=== PATIENT | female | born 1985 | race Caucasian/White ===

== ENCOUNTER 2021-02-11 20:36 | Emergency (ER) | payer MEDICAID ==
[~2021-02-11] VITALS: Ht 157.5 cm; Wt 113.6 kg
[~2021-02-11 20:36] MED LIST: NEXIUM 40MG40 MG PO; PEPCID 20MG TAB20 MG PO; ZYRTEC 10MG10 MG PO
[2021-02-11 22:52] LABS: BASO # 0.1 K/mm3 (0.0-0.2); BASO % 0.4 % (0.0-2.0); EOS # 0.3 K/mm3 (0.0-0.7); EOS % 2.2 % (0-4.0); GRAN # 7.6 K/mm3 (1.4-6.5); GRAN % 59.5 % (42.2-75.2); HEMOGLOBIN 10.4 g/dl (12.5-16.0); LYMPH # 3.8 K/mm3 (1.2-3.4); LYMPH % 29.6 % (20.0-51.0); MEAN CELL VOLUME 79 fl (80.0-100.0); MEAN CORPUSCULAR HEMOGLOBIN 24 pg (27.0-31.0); MEAN CORPUSCULAR HGB CONC 31 g/dl (33.0-37.0); MEAN PLATELET VOLUME 9.3 fl (7.4-10.4); MONO % 7.7 % (1.7-9.3); PLATELET COUNT 279 K/mm3 (130-400); RED BLOOD COUNT 4.27 M/mm3 (4.10-5.30); REDCELL DISTRIBUTION WIDTH-CV 14.7 % (11.5-14.5)
[2021-02-11 22:54] LABS: HEMATOCRIT 33.7 % (37.0-47.0)
[2021-02-11 23:07] LABS: COLLECTION METHOD CLEAN CATCH
[2021-02-11 23:07] LABS: ALBUMIN 3.6 gm/dL (3.5-5.0); BILIRUBIN,TOTAL 0.1 mg/dL (0.2-1.2); CALCIUM 9.2 mg/dL (8.4-10.2); CREATININE, serum 0.71 mg/dL (0.57-1.11); POTASSIUM 3.7 mmol/L (3.5-4.5); TOTAL PROTEIN 6.8 gm/dL (6.2-8.1)
[2021-02-11 23:12] LABS: MUCOUS Present /lpf; PH 5 (5-8); URINE APPEARANCE Cloudy; URINE BACTERIA Rare /hpf; URINE BILIRUBIN Negative (NEGATIVE); URINE BLOOD Negative (NEGATIVE); URINE COLOR Amber; URINE GLUCOSE Negative (NEGATIVE); URINE KETONE Negative (NEGATIVE); URINE LEUKOCYTE ESTERASE Negative (NEGATIVE); URINE NITRATE Negative (NEGATIVE); URINE PROTEIN(semi-quant) Negative (NEGATIVE); URINE RBC 0-2 /hpf; URINE UROBILINOGEN Negative (NEGATIVE)
[2021-02-11 23:27] LABS: TSH w REFLEX 2.84 uIU/mL (0.350-4.940)
[2021-02-12 00:19] VITALS: BP 134/92; PULSE 89; TEMP 98.3
== END 2021-02-12 00:20 | disposition home or self-care (01) ==
LOC: COL.ER 20:36
PROVIDERS: Emergency Medicine
DX: R00.2 Palpitations (principal); D72.829 Elevated white blood cell count, unspecified

== ENCOUNTER 2021-06-12 07:33 | Emergency (ER) | payer MEDICAID ==
[~2021-06-12] VITALS: Ht 165.1 cm; Wt 115.9 kg
[2021-06-12 07:41] VITALS: TEMP 98.9
[2021-06-12] MEDS ORDERED: ZOFRAN ODT4 MG PO (09:11)
[2021-06-12 09:30] VITALS: BP 120/81; PULSE 90
== END 2021-06-12 09:35 | disposition home or self-care (01) ==
LOC: COL.ER 07:33
DX: K52.9 Noninfective gastroenteritis and colitis, unspecified (principal); E66.9 Obesity, unspecified; Z20.822 Contact with and (suspected) exposure to COVID-19; Z68.41 Body mass index [BMI] 40.0-44.9, adult

== ENCOUNTER 2023-07-06 07:00 | Emergency (ER) | payer BC ==
[~2023-07-06] VITALS: Ht 165.1 cm; Wt 113.6 kg
[~2023-07-06 07:00] MED LIST changes: +CARAFATE 1GM1 G PO; +ZOFRAN ODT4 MG PO
[2023-07-06 07:05] VITALS: TEMP 97.9
[2023-07-06 07:42] LABS: BASO % 0.4 % (0.0-2.0); EOS # 0.2 K/mm3 (0.0-0.7); EOS % 2.3 % (0.0-4.0); GRAN # 5.3 K/mm3 (1.4-6.5); GRAN % 54.8 % (42.2-75.2); HEMOGLOBIN 10.3 g/dl (12.5-16.0); LYMPH # 3.4 K/mm3 (1.2-3.4); LYMPH % 35.1 % (20.0-51.0); MEAN CELL VOLUME 79 fl (80.0-100.0); MEAN CORPUSCULAR HEMOGLOBIN 25 pg (27-31); MEAN CORPUSCULAR HGB CONC 31 g/dl (33.0-37.0); MEAN PLATELET VOLUME 9.8 fl (7.4-10.4); MONO # 0.7 K/mm3 (0.1-0.6); MONO % 6.9 % (1.7-9.3); PLATELET COUNT 275 K/mm3 (130-400); RED BLOOD COUNT 4.19 M/mm3 (4.10-5.30); REDCELL DISTRIBUTION WIDTH-CV 14.3 % (11.5-14.5)
[2023-07-06 07:43] LABS: HEMATOCRIT 33.2 % (37.0-47.0)
[2023-07-06] MEDS ORDERED: NS 1,000 ML IV ONE (07:45)
[2023-07-06 07:54] LABS: ALANINE AMINOTRANSFERASE 22 U/L (0-55); ALBUMIN 3.4 gm/dL (3.5-5.0); ALKALINE PHOSPHATASE 80 U/L (40-150); ANION GAP 11 mmol/L (7-16); AST,SGOT 20 U/L (5-34); BLOOD UREA NITROGEN 10 mg/dL (7-19); CALCIUM 9.1 mg/dL (8.4-10.2); CARBON DIOXIDE 21 mmol/L (22-29); CHLORIDE 108 mmol/L (98-107); CREATININE, serum 0.82 mg/dL (0.57-1.11); GLUCOSE 132 mg/dL (70-99); POTASSIUM 3.5 mmol/L (3.5-4.5); SODIUM 140 mmol/L (136-145); TOTAL PROTEIN 6.5 gm/dL (6.2-8.1)
[2023-07-06 07:58] LABS: BILIRUBIN,TOTAL < 0.1 mg/dL (0.2-1.2)
[2023-07-06 08:07] LABS: TROPONIN-I < 0.010 ng/mL (0.00-0.033)
[2023-07-06] MEDS ORDERED: MOTRIN 800800 MG/TAB PO (10:51)
[2023-07-06] MEDS ORDERED: NORCO 325 MG-51 TAB PO (10:51)
[2023-07-06 11:10] VITALS: BP 103/63; PULSE 80
== END 2023-07-06 11:10 | disposition home or self-care (01) ==
LOC: COL.ER 07:00
PROVIDERS: Personal Emergency Response Attendant
DX: R07.89 Other chest pain (principal); E66.9 Obesity, unspecified; F17.290 Nicotine dependence, other tobacco product, uncomplicated; Z68.41 Body mass index [BMI] 40.0-44.9, adult
CPT/HCPCS: J7030